=== PATIENT | male | born 1990 | race Caucasian/White ===

== ENCOUNTER 2023-10-23 07:22 | Day surgery (SDC) | payer BC, SELFPAY ==
[2023-10-23] VITALS (9 sets, daily range): BP systolic 103–125; BP diastolic 68–90; PULSE 57–79; RESP 14–18; TEMP 36.2–36.6; O2SAT 96–99; BMI 20.9
[2023-10-23] MEDS: sodium chloride 0.9% 1,000 ML 30 ML IV (08:09)
--- NOTE | 2023-10-23 08:31 | W.PM.OPSUD ---
Surgery/Procedure H&P Update DATE OF PROCEDURE: October 23, 2023 DATE H&P PERFORMED: 10/05/23 H&P UPDATE INFORMATION: I have reviewed H&P completed within last 30 days, I have examined patient prior to procedure and No changes to prior documentation PLANNED PROCEDURE: Operation Date: 10/23/23 08:55 Proposed Procedures p Excision Mass/Lesion/Cyst Lower Extremit/excision of subcutaneous mass of scrotum(Not Applicable) - Corby Molina DO
--- NOTE | 2023-10-23 08:34 | ANES.PREANE2 ---
Pre-Anesthetic Assessment Height/Weight: Height 1.83 m Weight 70.307 kg Temp Pulse Resp BP Pulse Ox O2 Del Method 97.3 F L 60 16 115/78 96 Room Air 10/23/23 07:42 10/23/23 07:42 10/23/23 07:42 10/23/23 07:42 10/23/23 07:42 10/23/23 07:49 Operation Date: 10/23/23 08:55 Proposed Procedures p Excision Mass/Lesion/Cyst Lower Extremit/excision of subcutaneous mass of scrotum(Not Applicable) - Corby Molina DO Last intake: Intake Last Liquid Date 10/22/23 Last Liquid Time 23:30 Last Solid Date 10/22/23 Last Solid Time 23:30 Social No tobacco Exam alert, oriented x 3, clear to auscultation bilaterally and regular rate & rhythm Airway Submandibular: within normal limits Cervical ROM: within normal limits Mallampati: Class I Pulmonary None reported Anesthetic Plan ASA status: 1 Anesthesia: Anesthesia Evaluation and General Risk of > 500 ml blood loss (7ml/kg in children): No Medications/Allergies Home Medications Medication Instructions Recorded Confirmed Last Taken Type hydroxyzine HCl 25 mg tablet 25 mg PO DAILY 10/05/23 10/22/23 10/22/23 History tramadol 50 mg tablet 50 mg PO PRN 10/05/23 10/23/23 10/12/23 History Allergies Allergy/AdvReac Type Severity Reaction Status Date / Time No Known Allergies Allergy Unverified 10/22/23 15:35 Current Medications Generic Name Dose Route Start Last Admin Trade Name Freq PRN Reason Stop Dose Admin Sodium Chloride 1,000 mls @ 30 mls/hr 10/23/23 07:30 10/23/23 08:09 Sodium Chloride 0.9% IV 10/24/23 07:29 30 mls/hr .Q24H [place] Administration PFSH Anesthesia Family History Grandfather Diabetes Social History Smoking and tobacco/nicotine status: current every day tobacco/nicotine user Alcohol intake: current Alcohol intake frequency: holidays/special occasions only Data Anesthesia Cardiac Studies: No Data to Display
[2023-10-23] MEDS: ceFAZolin 2,000 MG in sodium chloride 0.9% (plus) 50 ML 100 MG IV (08:53)
--- NOTE | 2023-10-23 09:19 | PM.OP ---
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 He desired excision. The risk and benefits were explained and documented. Procedure: Patient was well not room placed on the OR table in the supine position. Propofol was administered by the department of anesthesia while airway was maintained. The scrotum was inspected prepped and draped in usual sterile fashion. A timeout was performed. All present were in agreement. 2% lidocaine with epinephrine was used to anesthetize the area of concern in the midline of the scrotum. An elliptical excision was made with a 15 blade scalpel. Excision measured 2 cm in length. Dissection was carried down through fascia and subcutaneous tissue and excised a cystic mass en bloc. Hemostasis was achieved with electrocautery. Specimen was passed off and put in formalin. Closure was performed in 2 layer fashion with -0 interrupted 3-0 Vicryl sutures and running 4-0 Monocryl subcutaneous suture. Dermabond was applied. Patient tolerated procedure well.
[2023-10-23] MEDS: lidocaine-epi 2% PF 1:200,000 20 mL SDV 3 ML XX (09:20)
--- NOTE | 2023-10-23 10:39 | SUR.PHASEII ---
INCISION SITE INTACT. NO BLEEDING.
--- NOTE | 2023-10-23 15:06 | ANE.PACU2 ---
Inpatient post-anesthesia follow up: Vital signs: Temperature 97.9 F Pulse Rate 64 Respiratory Rate 14 Blood Pressure 119/68 Pulse Oximetry 98 Oxygen Delivery Me thod Room Air Oxygen Flow Rate Fraction of Inspir ed Oxygen Hydration adequate: Yes Nausea and vomiting: No Mental status: Baseline Additional Comments: no apparent anesthetic complications noted
== END 2023-10-23 10:50 | disposition home or self-care (01) ==
PROVIDERS: Family Provider Nurse Practitioner; Visit Provider Surgery
PROC: (CPT 11422; principal; 2023-10-23 08:45)
DX: L72.0 Epidermal cyst (principal); F17.200 Nicotine dependence, unspecified, uncomplicated
CPT/HCPCS: 11422; 12041; 88307; J0690; J1100; J1885; J2250; J2405; J2704; J3010; J7030